=== PATIENT | female | born 1975 | race American Indian/Alaskan Native ===

== ENCOUNTER 2024-06-26 10:47 | Emergency (ER) | payer OTHER ==
[~2024-06-26] VITALS: Ht 165.1 cm; Wt 59.5 kg
[2024-06-26 13:38] VITALS: BP 118/78
== END 2024-06-26 13:41 | disposition home or self-care (01) ==
LOC: ED 10:47
DX: S61.211A Laceration without foreign body of left index finger without damage to nail, initial encounter (principal); W26.0XXA Contact with knife, initial encounter; Y93.G1 Activity, food preparation and clean up
CPT/HCPCS: 99282

== ENCOUNTER 2024-12-30 16:35 | Emergency (ER) | payer OTHER ==
[~2024-12-30] VITALS: Ht 165.1 cm; Wt 57.8 kg
[2024-12-30] MEDS ORDERED: ondansetron HCL 4 MG/2 ML VIAL IV ONE (16:45)
[2024-12-30 16:47] LABS: BILIRUBIN, URINE NEGATIVE (negative); BLOOD/HGB, URINE NEGATIVE (Negative); KETONE, URINE >=80 (Negative); LEUK ESTERASE, URINE NEGATIVE (negative); NITRITE, URINE NEGATIVE (negative)
[2024-12-30 16:52] LABS: EPITHELIAL CELLS, URINE SQUAMOUS 3+ /lpf (0-1+)
[2024-12-30 16:53] LABS: BACTERIA, URINE 1+ /hpf (negative); CASTS, URINE NONE SEEN \\lpf; COLLECTION TYPE, URINE CLEAN CATCH; CRYSTALS, URINE AMORPHOUS PHOSPH 1+ (0-1+); RED BLOOD CELLS, URINE 0-1 /hpf (0-5); REFLEX CULTURE, URINE No (No); WHITE BLOOD CELLS, URINE 0-1 /HPF (0-5)
[2024-12-30 16:53] LABS: BASOPHILS 0.3 % (0-2); HEMATOCRIT 39.4 % (35.0-50.0); HEMOGLOBIN 13.4 g/dL (12.0-18.0); LYMPHOCYTES 4.9 % (24-44); MCH 29.4 (27-36); MCHC 34.1 g/dl (30-36); MCV 86.3 fl (81-99); MONOCYTES 1.3 % (0-12); NEUTROPHILS 93.5 % (39-80); PLATELET COUNT 301 K/uL (140-440); RBC 4.57 M/ul (4.3-5.7); RDW 13.9 (10.5-15.0)
[2024-12-30 17:10] LABS: ALBUMIN 4.3 g/dL (3.4-5.0); ALBUMIN/GLOBULIN RATIO 1.19 (1.1-2.4); ANION GAP 13.1 (7-21); BILIRUBIN, TOTAL 0.8 mg/dL (0.2-1.0); BUN/CREATININE RATIO 12.5 (6.0-28.6); CALCIUM 8.9 mg/dL (8.5-10.1); CREATININE, SERUM 0.96 mg/dL (0.55-1.02); MAGNESIUM 1.5 mg/dL (1.8-2.4); POTASSIUM 3.1 mmol/L (3.5-5.1); PROTEIN, TOTAL 7.9 g/dL (6.4-8.2)
[2024-12-30] MEDS ORDERED: SODIUM CHLORIDE 0.9% 1,000 ML IV ONE (17:30)
[2024-12-30] MEDS ORDERED: diphenhydrAMINE HCL 50 MG/ML VIAL IV ONE (17:30)
[2024-12-30] MEDS ORDERED: POTASSIUM CHLORIDE 10 MEQ/100 ML BAG IV SCH (17:30)
[2024-12-30] MEDS ORDERED: HYDROmorphone HCL 1 MG/ML SYR IV ONE (17:30)
[2024-12-30] MEDS ORDERED: ondansetron HCL 4 MG/2 ML VIAL IV PRN (17:30)
[2024-12-30] MEDS ORDERED: MAGNESIUM OXIDE 400 MG TABLET PO ONE (20:00)
[2024-12-30 20:15] VITALS: BP 108/60
== END 2024-12-30 20:15 | disposition home or self-care (01) ==
LOC: ED 16:35
PROVIDERS: Emergency Medicine
DX: R11.2 Nausea with vomiting, unspecified (principal); R19.7 Diarrhea, unspecified; E87.6 Hypokalemia
CPT/HCPCS: 36415; 80053; 81001; 83690; 83735; 84703; 85025; 96365; 96366; 96375; 96376; 99284-25; J1171; J1200; J2405; J3480; J7030